=== PATIENT | male | born 1950 | race Caucasian/White ===

== ENCOUNTER 2023-04-07 04:44 | Day surgery (SDC) | payer OTHER, MEDICARE ==
[2023-04-03 12:09] VITALS: BMI 19.8
[2023-04-07 09:04] VITALS: TEMP 97.8
[2023-04-07 09:42] VITALS: RESP 15
[2023-04-07 10:00] VITALS: BP 116/76; PULSE 45
== END 2023-04-07 10:33 | disposition home or self-care (01) ==
LOC: JASU-ENDO 04:44
PROVIDERS: ATTEND Internal Medicine Gastroenterology
PROC: 0DJD8ZZ Inspection of Lower Intestinal Tract, Via Natural or Artificial Opening Endoscopic (ICD-10-PCS; principal; 2023-04-07 09:00)
DX: K64.8 Other hemorrhoids (principal); K57.30 Diverticulosis of large intestine without perforation or abscess without bleeding; K59.89 Other specified functional intestinal disorders